=== PATIENT | male | born 1985 | race American Indian/Alaskan Native ===

== ENCOUNTER 2024-01-02 09:37 | Outpatient (CLI) | payer OTHER | END 2024-01-02 23:59 | disposition home or self-care (01) | LOC: MRI 09:37 | PROVIDERS: ATTEND Nurse Practitioner | DX: S80.12XA Contusion of left lower leg, initial encounter (principal); R60.9 Edema, unspecified; X58.XXXA Exposure to other specified factors, initial encounter; Y93.89 Activity, other specified; Y92.89 Other specified places as the place of occurrence of the external cause; Y99.8 Other external cause status; M79.89 Other specified soft tissue disorders | CPT/HCPCS: 73718 ==